=== PATIENT | male | born 1955 ===

== ENCOUNTER 2017-02-23 11:11 | Emergency (ER) | payer OTHER ==
[2017-02-23 11:18] VITALS: TEMP 98.3
[2017-02-23 13:08] VITALS: BP 146/93; PULSE 64; RESP 20; O2SAT 96
--- NOTE | 2017-02-23 13:15 | RAD ---
PROCEDURE: Bilateral Knee Radiographs. HISTORY: b/l knee pain: left medial, right proximal and med COMPARISON: None available. FINDINGS: Rotated lateral view of the right knee. BONES: Right Knee: No acute displaced fracture. Left Knee: No acute displaced fracture. JOINTS: Right Knee: No dislocation. Medial and lateral joint space narrowing. Left knee: No dislocation. Medial and lateral joint space narrowing. SOFT TISSUES: Right Knee: Unremarkable. No evidence of radiopaque foreign body. Left Knee: Unremarkable. No evidence of radiopaque foreign body. JOINT EFFUSION: Right Knee: No significant joint effusion. Left Knee: No significant joint effusion. OTHER FINDINGS: None. IMPRESSION: Degenerative changes bilaterally.
--- NOTE | 2017-02-23 13:22 | C.PDOC ---
History Of Present Illness 61 year old male presents to the ED with complaints of bilateral knee pain for three months. He has used Advil with relief but symptoms return again. Patient denies any past medical history, trauma, or other complaints at this time. Time Seen by Provider: 02/23/17 11:48 Chief Complaint (Nursing): Lower Extremity Problem/Injury History Per: Patient History/Exam Limitations: no limitations Onset/Duration Of Symptoms: Persistent (3 months ) Current Symptoms Are (Timing): Still Present Recent travel outside of the [place]: No Past Medical History Reviewed: Historical Data, Nursing Documentation, Vital Signs Vital Signs: Last Vital Signs Temp 98.3 F 02/23/17 13:07 Pulse 64 02/23/17 13:07 Resp 20 02/23/17 13:07 BP 146/93 H 02/23/17 13:07 Pulse Ox 96 02/23/17 14:12 Family History: States: Unknown Family Hx - Social History Hx Alcohol Use: No Hx Substance Use: No Review Of Systems Constitutional: Negative for: Fever, Chills Cardiovascular: Negative for: Chest Pain Respiratory: Negative for: Shortness of Breath Gastrointestinal: Negative for: Nausea, Vomiting Musculoskeletal: Positive for: Leg Pain (bilateral knee pain ) Neurological: Negative for: Weakness, Numbness Physical Exam - Physical Exam Appears: Non-toxic, No Acute Distress Skin: Warm, Dry Head: Atraumatic Eye(s): bilateral: Normal Inspection Extremity: Normal ROM (Full ROM of bilateral knees ), Tenderness (bilateral medial knee tenderess ), No Calf Tenderness, Capillary Refill (good capillary refill, less than two seconds ), No Deformity, No Swelling Pulses: Left Dorsalis Pedis: Normal, Right Dorsalis Pedis: Normal Neurological/Psych: Oriented x3, Normal Speech, Normal Cognition, Normal Motor, Normal Sensation Gait: Steady ED Course And Treatment O2 Sat by Pulse Oximetry: 96 (room air ) - Other Rad Bilateral Knee X-Ray X-Ray: Viewed By Me, Read By Radiologist Interpretation: FINDINGS: Rotated lateral view of the right knee. BONES: Right Knee: No acute displaced fracture. Left Knee: No acute displaced fracture. JOINTS: Right Knee: No dislocation. Medial and lateral joint space narrowing. Left knee: No dislocation. Medial and lateral joint space narrowing. SOFT TISSUES: Right Knee: Unremarkable. No evidence of radiopaque foreign body. Left Knee: Unremarkable. No evidence of radiopaque foreign body. JOINT EFFUSION: Right Knee: No significant joint effusion. Left Knee: No significant joint effusion. OTHER FINDINGS: None. IMPRESSION: Degenerative changes bilaterally. Progress Note: Bilateral knee X-Ray was ordered and patient was given motrin. Medical Decision Making Medical Decision Making: pt with 3 months bilateral knee pain, no injury, mild bilateral knee tenderness with from, on xray, degenerative changes seen b/l. will d/c with nsadis and clinic follow up. Disposition Counseled Patient/Family Regarding: Diagnosis, Need For Followup, Rx Given - Disposition Referrals: [facility] [Outside] Disposition: HOME/ ROUTINE Disposition Time: 13:20 Condition: STABLE Additional Instructions: Denisa radiografas muestran cambios degenerativos en ambas rodillas; esto puede ser la cierra de hook dolor. [place] ibuprofeno segn lo prescrito y siga en la cl jeri mdica. Prescriptions: Ibuprofen [Motrin] 600 mg PO TID #30 tab Instructions: Arthralgia (ED) Forms: Gen Discharge Inst Albanian, [email or web address] (Albanian) Print Language: SOUTH KOREAN - Clinical Impression Clinical Impression: Bilateral knee pain, Arthritis of knee - PA / MIDLEVEL PROVIDER / Resident Statement MD/DO has reviewed & agrees with the documentation as recorded. - Scribe Statement The provider has reviewed the documentation as recorded by the Scribe Malathi Carrion All medical record entries made by the Scribe were at my direction and personally dictated by me. I have reviewed the chart and agree that the record accurately reflects my personal performance of the history, physical exam, medical decision making, and the department course for this patient. I have also personally directed, reviewed, and agree with the discharge instructions and disposition.
== END 2017-02-23 13:30 | disposition home or self-care (01) ==
LOC: C.ER 11:11
DX: M25.562 Pain in left knee (principal); M25.561 Pain in right knee; M17.9 Osteoarthritis of knee, unspecified

== ENCOUNTER 2017-08-25 10:10 | Emergency (ER) | payer OTHER ==
[2017-08-25 10:19] VITALS: BMI 25.9
[2017-08-25 10:20] VITALS: BP 135/90; PULSE 70; RESP 18; TEMP 98.2; O2SAT 99
--- NOTE | 2017-08-25 10:46 | C.PDOC ---
History Of Present Illness Alexandre Grigsby is a 62 year old male, with no significant past medical history, who presents to the emergency department complaining of redness and itching irritation to right axilla onset for x10 days. Patient reports using different sprays and deodorant types when he started itching and scratching. Patient states he stopped using sprays. He initially used Neosporin and generic antifungal cream by pharmacy but it was still itching. He denies any fever, chills or other medical complaints. PMD: None provided. Time Seen by Provider: 08/25/17 10:22 Chief Complaint (Nursing): Abnormal Skin Integrity History Per: Patient History/Exam Limitations: no limitations Onset/Duration Of Symptoms: Days (x10) Current Symptoms Are (Timing): Still Present Location Of Injury: Right: Arm (axilla) Quality Of Symptoms: Itching Past Medical History Reviewed: Historical Data, Nursing Documentation, Vital Signs Vital Signs: Last Vital Signs Temp 98.2 F 08/25/17 10:20 Pulse 70 08/25/17 10:20 Resp 18 08/25/17 10:20 BP 135/90 08/25/17 10:20 Pulse Ox 99 08/25/17 10:47 - Medical History PMH: No Chronic Diseases Surgical History: No Surg Hx Family History: States: Unknown Family Hx - Social History Hx Tobacco Use: No Hx Alcohol Use: No Hx Substance Use: No Review Of Systems Constitutional: Negative for: Fever, Chills Skin: Positive for: Other (red and itchy irritation to right axilla) Physical Exam - Physical Exam Skin: Normal Color, Warm, Dry, Other ("red fungal appearing" patchy area under the right axilla with excoriation. No warmth, pus or abscess.) Head: Atraumatic, Normacephalic Eye(s): bilateral: Normal Inspection Neck: Normal ROM Extremity: Normal ROM, No Tenderness, No Deformity, No Swelling Neurological/Psych: Oriented x3 Gait: Steady ED Course And Treatment O2 Sat by Pulse Oximetry: 99 (RA) Pulse Ox Interpretation: Normal Medical Decision Making Medical Decision Making: Initial Impression: Fungal infection Initial Plan: --Will treat with superficial bacterial ointment and antifungal cream, Miconazole. Disposition - Disposition Referrals: [facility] at [facility] [Outside] Disposition: HOME/ ROUTINE Disposition Time: 10:44 Condition: GOOD Prescriptions: Miconazole 2% [Miconazole 2% Cream] 1 appl EXT BID #1 tube Mupirocin 2% Ointment [Bactroban Ointment] 1 appl TP BID #1 tube Forms: [facility] ([place]ican), Gen Discharge Inst [place]ican - POA Present On Arrival: None - Clinical Impression Clinical Impression: Fungal infection - Scribe Statement The provider has reviewed the documentation as recorded by the Boogie Lino Provider Attestation: All medical record entries made by the Boogie were at my direction and personally dictated by me. I have reviewed the chart and agree that the record accurately reflects my personal performance of the history, physical exam, medical decision making, and the department course for this patient. I have also personally directed, reviewed, and agree with the discharge instructions and disposition.
== END 2017-08-25 11:03 | disposition home or self-care (01) ==
LOC: C.ER 10:10
DX: B49 Unspecified mycosis (principal)

== ENCOUNTER 2017-12-27 10:15 | Emergency (ER) | payer OTHER ==
[2017-12-27 10:15] VITALS: BMI 25.9
[2017-12-27 10:27] VITALS: BP 125/77; PULSE 80; RESP 16; TEMP 98.1; O2SAT 98
--- NOTE | 2017-12-27 10:53 | C.PDOC ---
History Of Present Illness 62 y/o male presents to the ER complaining of right knee pain which has been present for the past 1 week. Patient states that he has pain with extension and flexion of his knee. Patient reports that the pain is worse with ambulation. He feels like his "muscles are tight." He is also complaining of pain in his right buttock which is radiating into his right thigh. he notes that he did not take any medications for the pain. Denies having bladder/bowel incontinence, dysuria, hematuria, and recent weight loss. Time Seen by Provider: 12/27/17 10:28 Chief Complaint (Nursing): Lower Extremity Problem/Injury History Per: Patient History/Exam Limitations: no limitations Onset/Duration Of Symptoms: Days Current Symptoms Are (Timing): Still Present Severity: Moderate Past Medical History Reviewed: Historical Data, Nursing Documentation, Vital Signs Vital Signs: Last Vital Signs Temp 98.1 F 12/27/17 10:25 Pulse 80 12/27/17 10:25 Resp 16 12/27/17 10:25 BP 125/77 12/27/17 10:25 Pulse Ox 98 12/27/17 11:46 - Medical History PMH: No Chronic Diseases Surgical History: No Surg Hx Family History: States: No Known Family Hx - Social History Hx Tobacco Use: No Hx Alcohol Use: No Hx Substance Use: No Review Of Systems Constitutional: Negative for: Fever, Chills, Weakness, Malaise, Weight loss Cardiovascular: Negative for: Chest Pain, Palpitations, Orthopnea, Edema, Light Headedness Respiratory: Negative for: Cough, Shortness of Breath, SOB with Excertion, Wheezing Gastrointestinal: Negative for: Nausea, Vomiting, Abdominal Pain, Diarrhea, Constipation Genitourinary: Negative for: Dysuria, Frequency, Incontinence, Hematuria Musculoskeletal: Positive for: Back Pain (r glureal), Leg Pain (right knee/ thigh pain) Neurological: Negative for: Weakness, Numbness, Incoordination, Headache Physical Exam - Physical Exam Appears: Well, Non-toxic, No Acute Distress Skin: Normal Color, Warm, Dry Head: Atraumatic, Normacephalic Eye(s): bilateral: Normal Inspection, PERRL, EOMI Nose: Normal Oral Mucosa: Moist Neck: No Midline Cervical Tenderness, Supple Chest: Symmetrical Cardiovascular: Rhythm Regular Respiratory: Normal Breath Sounds, No Rales, No Rhonchi, No Wheezing Gastrointestinal/Abdominal: Normal Exam, Soft, No Tenderness, No Guarding, No Rebound Back: Normal Inspection, No CVA Tenderness, No Vertebral Tenderness, Muscle Spasm, No Straight Leg Raising, Other (R gluteal tenderness) Extremity: Normal ROM, No Swelling, Other (muscle spasm/tenderness to lateral aspect of right thigh) Neurological/Psych: Oriented x3, Normal Speech Gait: Steady ED Course And Treatment O2 Sat by Pulse Oximetry: 98 (RA) Pulse Ox Interpretation: Normal - Other Rad X-Ray- Right Knee X-Ray: Viewed By Me, Read By Radiologist Interpretation: Date of service: 12/27/2017. PROCEDURE: Right Knee Radiographs. HISTORY: R knee pain. COMPARISON: Bilateral knee radiographs dated 02/23/2017. FINDINGS: BONES: No acute fracture. JOINTS: Stable tricompartmental narrowing with degenerative spurring. JOINT EFFUSION: None. OTHER FINDINGS: None. IMPRESSION: No demonstrated fracture or dislocation. Stable tricompartment arthritic changes. Progress Note: X-Ray- Right Knee ordered. Patient treated with Toradol IM and Valium PO. Medical Decision Making Medical Decision Making: Patient has normal ROM in his R knee. Xray shows arthritis. He has no midline pain and no urinary symptoms. He has R gluteal pain radiating down the R lateral thigh that is worse with moveement is consistent with sciatica. No neuro deficits. No complaint of urinary or bowel incontinence, weakness, numbness or tingling. He is ambulating around the ED without issue. He is concerned because he reports that he cannot cycle to work due to pain with up movement on his R leg. He was instructed to follow-up with ortho and PMD and discharged with naproxen. Disposition - Disposition Referrals: Gustavo Contreras III, MD [Staff Provider] - Disposition: HOME/ ROUTINE Disposition Time: 11:42 Condition: GOOD Additional Instructions: Follow-up with PMD within 2 days. Follow-up with Orthopedics. Return to ED if condition worsens, Prescriptions: Naproxen 500 mg PO BID #30 tab Instructions: Sciatica, Low Back Pain in Adults, Back Flexion Stretching Exercises, Knee Pain Forms: [facility] (Egyptian), Gen Discharge Inst Omani, [employer] (Omani) Print Language: ARMENIAN - Clinical Impression Clinical Impression: Arthritis, Sciatica, Knee pain - Scribe Statement The provider has reviewed the documentation as recorded by the Maiibneri Carbone Provider Attestation: All medical record entries made by the Maiibe were at my direction and personally dictated by me. I have reviewed the chart and agree that the record accurately reflects my personal performance of the history, physical exam, medical decision making, and the department course for this patient. I have also personally directed, reviewed, and agree with the discharge instructions and disposition.
--- NOTE | 2017-12-27 11:39 | RAD ---
Date of service: 12/27/2017 PROCEDURE: Right Knee Radiographs. HISTORY: R knee pain COMPARISON: Bilateral knee radiographs dated 02/23/2017. FINDINGS: BONES: No acute fracture. JOINTS: Stable tricompartmental narrowing with degenerative spurring. JOINT EFFUSION: None. OTHER FINDINGS: None. IMPRESSION: No demonstrated fracture or dislocation. Stable tricompartment arthritic changes.
== END 2017-12-27 11:52 | disposition home or self-care (01) ==
LOC: C.ER 10:15
DX: M13.861 Other specified arthritis, right knee (principal); M54.31 Sciatica, right side; M25.561 Pain in right knee
CPT/HCPCS: 73562; 96372; 99283; J1885

== ENCOUNTER 2018-08-14 11:03 | Outpatient (CLI) | payer SELFPAY | END 2018-08-14 11:04 | disposition home or self-care (01) | LOC: C.RADIC 11:03 ==